=== PATIENT | male | born 1965 | race Caucasian/White ===

== ENCOUNTER 2023-03-07 06:01 | Day surgery (SDC) | payer OTHER ==
[~2023-03-07] VITALS: Ht 172.7 cm; Wt 80.0 kg
[2023-03-07 06:34] VITALS: BP 157/78
[2023-03-07] MEDS ORDERED: LIPITOR40 MG PO (06:38)
[2023-03-07] MEDS ORDERED: ZESTRIL40 MG PO (06:38)
[2023-03-07] MEDS ORDERED: REMERON15 MG PO (06:39)
[2023-03-07 06:54] LABS: BASOPHILS 1.2 % (0-2); EOSINOPHILS 2.3 % (0-6); HEMATOCRIT 41.2 % (35.0-50.0); HEMOGLOBIN 14.2 g/dL (12.0-18.0); LYMPHOCYTES 35.2 % (24-44); MCH 30.5 (27-36); MCHC 34.4 g/dl (30-36); MCV 88.5 fl (81-99); MONOCYTES 8.6 % (0-12); NEUTROPHILS 52.7 % (39-80); PLATELET COUNT 191 K/uL (140-440); RBC 4.66 M/ul (4.3-5.7); RDW 13.7 (10.5-15.0)
[2023-03-07 07:03] LABS: ALBUMIN 3.7 g/dL (3.4-5.0); ALBUMIN/GLOBULIN RATIO 1.23 (1.1-2.4); ANION GAP 14.6 (7-21); BILIRUBIN, TOTAL 0.5 ng/dL (0.2-1.0); BUN/CREATININE RATIO 13.82 (6.0-28.6); CREATININE, SERUM 0.94 mg/dL (0.70-1.30); POTASSIUM 3.6 mmol/L (3.5-5.1); PROTEIN, TOTAL 6.7 g/dL (6.4-8.2)
[2023-03-07] MEDS ORDERED: HYDROCODON-ACE1 EA10 PO (09:31)
[2023-03-07] MEDS ORDERED: IBUPROFEN600 MG PO (09:31)
[2023-03-07] MEDS ORDERED: ACETAMINOPHEN500 MG PO (09:32)
[2023-03-07 09:55] VITALS: BP 160/78
[2023-03-07 10:55] VITALS: BP 150/76
--- NOTE | 2023-03-07 15:31 | EKG ---
[facility] [address] [facility] [place], [place] [address] Signed Normal sinus rhythm Normal ECG No previous ECGs available Confirmed by GABRIEL OCONNOR MD ([id number]) on 03/07/2023 3:31:44 PM Electronically Signed By: GABRIEL OCONNOR 03/07/23 1531 PATIENT NAME: ESSIE VICTORIA Electrocardiogram DATE OF : 63 PHYSICIAN: GABRIEL OCONNOR REPORT #: [id number] REPORT IS CONFIDENTIAL AND NOT TO BE RELEASED WITHOUT AUTHORIZATION
--- NOTE | 2023-03-07 21:10 | OR ---
[facility] [address] [place], [place] [address] Signed DATE OF OPERATION: 03/07/2023 SURGEON: Elham Harkins MD PREOPERATIVE DIAGNOSIS: Incarcerated non-strangulated left inguinal hernia. POSTOPERATIVE DIAGNOSES: 1. Incarcerated non-strangulated left direct inguinal hernia. 2. Cord lipoma. PROCEDURES: 1. Repair of left direct inguinal hernia with implantation of Prolene mesh underlay technique. 2. Excision of cord lipoma. ANESTHESIA: General LMA, Eliazar Kidd, SENIOR ENERGY CONSULTANT and preoperative left inguinal block and local 0.25% Marcaine with epinephrine 10 mL. INDICATION: This 57-year-old man is a prisoner at [facility] and is identified as having an increasingly painful bulky left groin hernia. It is not reducible. Testicles appear normal. He has been admitted at this time to undergo repair of the hernia. He understands the risk of bleeding, infection, recurrence and so on. FINDINGS: A bulky hernia was noted, proved to be a direct hernia. It was not reducible. There was a cord lipoma moderate in size, which was excised. Cord structures were preserved. An ilioinguinal nerve was identified and preserved as well. Repair consisted of invagination of the direct defect with implantation of Prolene mesh in an underlay technique. The tails of the graft were not carried circumferentially around the cord, so as to minimize cord edema. DESCRIPTION OF PROCEDURE: The patient was brought to the operating room, given a general LMA type anesthetic after undergoing a left inguinal regional block by the out of school hours care worker. Preoperative antibiotic Ancef was given. Sequential compression device stockings were used. After satisfactory general anesthesia, the lower abdomen was clipped and prepared with chlorhexidine solution and draped sterilely. An incision was made cephalad to the pubic tubercle and Electronically Signed By: ELHAM HARKINS MD 03/07/232109 PATIENT NAME: ESSIE VICTORIA OPERATIVE REPORT DATE OF : 63 REPORT #: [id number] PHYSICIAN: ELHAM HARKINS MD PCP: VIRGEN ALBERTS REPORT IS CONFIDENTIAL AND NOT TO BE RELEASED WITHOUT AUTHORIZATION [facility] [address] [place], [place] [address] Signed dissection carried through the subcutaneous tissue, revealing ultimately a bulky hernia which had displaced the external oblique and attenuated the fibers quite markedly. It was not reducible. The remnants of the external oblique were incised laterally and with meticulous care the cord structures were mobilized from the floor more fully. Ultimately, a lipoma in the anterolateral aspect was freed from the cord structures and its vascular pedicle secured with hemostats, excising the lipoma and passed for pathology. The vascular pedicles were secured with 2-0 silk ties. The cord was encircled with a Juany drain and retracted. The ilioinguinal nerve branch was freed from the cremasteric muscle fibers of the cord. Centenary was placed and the nerve retracted laterally around the external oblique. Dissection of the hernia away from the cord itself was undertaken with electrocautery ultimately showing the defect to be medial to the inferior epigastric vessels. This constituted a direct hernia. The defect was rather bulky at least 3-4 cm in the inguinal canal. There was no indirect sac. An Allis was applied to the tendon of the transversus abdominis and with the cord retracted laterally. The attenuated fibers of the fascia of the transversalis were incised with electrocautery allowing for replacement of the bulky properitoneal fat and herniated segment back to the properitoneal space. A segment of Prolene mesh was cut to an elliptical configuration and secured in an underlay technique with interrupted 2-0 Prolene sutures. A defect was cut in the graft to accommodate the cord and the tails of the graft were secured laterally. Complete and circumferential closure of the graft in relation to the cord was not undertaken so as to avoid congestion to the cord structures itself. The ilioinguinal nerve was made certain to be free of any encumbrance of the mesh as well. Irrigation was undertaken and 10 mL of 0.25% Marcaine with epinephrine was injected locally. The cord was placed into the canal as was the ilioinguinal nerve. The external oblique reapproximated with running 2-0 Vicryl suture. Arnel layer was reapproximated with interrupted 2-0 Vicryl and the skin closed with running subcuticular 3-0 Vicryl. Steri-Strips were applied as was an Acticoat dressing. The patient was ultimately extubated and transferred to recovery room in good condition having suffered no complications. Sponge, needle, and instrument counts reported as correct x3. MD SRIDEVI Olguin/VADIML /[id number] Electronically Signed By: ELHAM HARKINS MD 03/07/232109 PATIENT NAME: ESSIE VICTORIA OPERATIVE REPORT DATE OF : 63 REPORT #: [id number] PHYSICIAN: ELHAM HARKINS MD PCP: VIRGEN ALBERTS REPORT IS CONFIDENTIAL AND NOT TO BE RELEASED WITHOUT AUTHORIZATION [facility] [address] [place] [address] Signed cc: GONZALES Cortes Copies: VIRGEN ALBERTS ~ Electronically Signed By: ELHAM HARKINS MD 03/07/230 PATIENT NAME: SWEETIEESSIE CAO OPERATIVE REPORT DATE OF : 63 REPORT #: [id number] PHYSICIAN: ELHAM HARKINS MD PCP: VIRGEN ALBERTS REPORT IS CONFIDENTIAL AND NOT TO BE RELEASED WITHOUT AUTHORIZATION
--- NOTE | 2023-03-09 12:27 | PATH ---
[facility] [address] [facility] [place], [place] [address] Signed SPECIMEN(S): A LEFT SPERMATIC CORD SPECIMEN SOURCE: A. LEFT SPERMATIC CORD CLINICAL HISTORY: Left inguinal hernia FINAL PATHOLOGIC DIAGNOSIS: Soft tissue, left spermatic cord, excision: - Mature adipose tissue, clinically cord lipoma BRP MICROSCOPIC EXAMINATION: Histologic sections of all submitted blocks are examined by light microscopy. These findings, together with the gross examination, support the pathologic diagnosis. GROSS DESCRIPTION: The specimen, labeled and designated "Mikhail Herreraazo, left spermatic cord lipoma," is received in formalin and consists of yellow-quigley, smooth fibroadipose tissue fragment that measure 5.5 x 1.7 x 0.8 cm. Specimen is inked. Sectioning through the specimen to reveal regular adipose tissue surrounded with a thin capsule. Accounts Receivable Administrator sections are submitted in (A1). JS (under the direct supervision of a pathologist) The Gross Description was prepared using a voice recognition system. The report was reviewed for accuracy; however, sound-alike word errors, addition and/or deletions may occur. If there is any question about this report, please contact Client Services. ADDITIONAL NOTES: Immunohistochemical and/or in situ hybridization studies if performed in this case included appropriate positive controls that reacted as expected. This test was developed and its performance characteristics determined by [facility]. It has not been cleared or approved by the U.S. Food and Drug Administration. The FDA has determined that such clearance or approval is not necessary. This test is used for clinical purposes. It should not be regarded as investigational or for research. [facility] is certified under the Clinical Laboratory Improvement PATIENT NAME: ESSIE VICTORIA PATHOLOGY DATE OF : 63 REPORT #: [id number] PHYSICIAN: ALECIA RAMIREZ PCP: VIRGEN ALBERTS REPORT IS CONFIDENTIAL AND NOT TO BE RELEASED WITHOUT AUTHORIZATION [facility] [address] [place] [facility] [place] [address] Signed Amendments of 1988 (CLIA) as qualified to perform high complexity clinical laboratory testing. PERFORMING LABORATORY: Technical component was performed by [facility], [address] [place] [address] (CLIA# [id number]). Professional interpretation was performed by [facility] - [facility], [facility] [address] [address] (CLIA#:[id number]). Diagnostician: Davie Mayfield MD Pathologist Electronically Signed 03/09/2023 Copies: ~ PATIENT NAME: ESSIE VICTORIA PATHOLOGY DATE OF : 63 REPORT #: [id number] PHYSICIAN: ALECIA RAMIREZ PCP: VIRGEN ALBERTS REPORT IS CONFIDENTIAL AND NOT TO BE RELEASED WITHOUT AUTHORIZATION
== END 2023-03-07 11:00 | disposition home or self-care (01) ==
LOC: DS 06:01
PROVIDERS: ATTEND Surgery
PROC: 0VBG0ZZ Excision of Left Spermatic Cord, Open Approach (ICD-10-PCS; 2023-03-07)
PROC: 0YU60JZ Supplement Left Inguinal Region with Synthetic Substitute, Open Approach (ICD-10-PCS; principal; 2023-03-07 07:30)
DX: K40.30 Unilateral inguinal hernia, with obstruction, without gangrene, not specified as recurrent (principal); D17.6 Benign lipomatous neoplasm of spermatic cord; N40.1 Benign prostatic hyperplasia with lower urinary tract symptoms; R35.0 Frequency of micturition; G40.909 Epilepsy, unspecified, not intractable, without status epilepticus; I10 Essential (primary) hypertension; J45.909 Unspecified asthma, uncomplicated
CPT/HCPCS: 00830; 36415; 64450; 76942; 80053; 85025; 93005; 93010; C1781; J0131; J0690; J1100; J1644; J1885; J2001; J2250; J2405; J2704; J2795; J3490; J7121

== ENCOUNTER 2023-03-14 10:10 | Day surgery (SDC) | payer OTHER ==
[~2023-03-14] VITALS: Ht 172.7 cm; Wt 79.3 kg
[~2023-03-14 10:10] MED LIST: ACETAMINOPHEN500 MG PO; HYDROCODON-ACE1 EA10 PO; IBUPROFEN600 MG PO; LIPITOR40 MG PO; REMERON15 MG PO; ZESTRIL40 MG PO
[2023-03-14] MEDS ORDERED: FLOMAX0.4 MG PO (10:31)
[2023-03-14] MEDS ORDERED: HYDROCHLOROTH12.5 M1 PO (10:33)
[2023-03-14 12:38] LABS: BASOPHILS 1.1 % (0-2); EOSINOPHILS 4.1 % (0-6); HEMATOCRIT 39.5 % (35.0-50.0); HEMOGLOBIN 13.7 g/dL (12.0-18.0); LYMPHOCYTES 21.6 % (24-44); MCHC 34.6 g/dl (30-36); MCV 89.6 fl (81-99); MONOCYTES 9.1 % (0-12); NEUTROPHILS 64.1 % (39-80); PLATELET COUNT 213 K/uL (140-440); RBC 4.41 M/ul (4.3-5.7); RDW 13.8 (10.5-15.0)
[2023-03-14 13:05] LABS: ALBUMIN 3.7 g/dL (3.4-5.0); ANION GAP 11.3 (7-21); BILIRUBIN, TOTAL 0.8 ng/dL (0.2-1.0); BUN/CREATININE RATIO 21.11 (6.0-28.6); CALCIUM 9.2 mg/dL (8.5-10.1); CREATININE, SERUM 0.9 mg/dL (0.70-1.30); POTASSIUM 4.3 mmol/L (3.5-5.1); PROTEIN, TOTAL 7.4 g/dL (6.4-8.2)
[2023-03-14] MEDS ORDERED: HYDROCODON-ACE1 EA10 PO (18:44)
[2023-03-14] MEDS ORDERED: ACETAMINOPHEN500 MG PO (18:45)
--- NOTE | 2023-03-14 18:53 | NUR ---
03/14/23 [address] 1833- PT ARRIVES TO PACU, NON REACTIVE TO STIMULUS AT THIS TIME. ON ROOM AIR AND TOLERATING WELL. LR INFUSING TO LEFT HAND IV (CHARTED RIGHT). ALL MONITORS IN PLACE. ABD SOFT, NON DISTENDED. DRESSING TO LEFT GROIN, CDI, BRUISING FROM PREVIOUS PROCEDURE.
[2023-03-14 19:00] VITALS: BP 157/66
--- NOTE | 2023-03-14 19:08 | NUR ---
PT TO ROOM 123 FROM PACU. PT AWAKE AND ALERT, RESPIRATIONS EVEN AND UNLABORED. GUARDS AT BEDSIDE. DRSG TO L) GROIN IS CDI, BRUISING AROUND SITE IS REPORTED TO BE FROM PREVIOUS SURGERY. PT DENIES PAIN AT THIS TIME.
[2023-03-14 19:09] VITALS: BP 147/75
--- NOTE | 2023-03-15 04:32 | NUR ---
REC'D REPORT FROM ESTELLA GARCIA. PT LYING ON STRETCHER. A/O X4. C/O PAIN- PRN NORCO GIVEN. PT TOLERATING PO FLUIDS AND FOOD. DENIES NAUSEA. VSS. ABLE TO URINATE WITH NO ISSUES. ASSISTED WITH DRESSING BY OFFICERS WHO ARE PRESENT IN ROOM. PT LEFT VIA W/C TO FRONT DOOR. LEFT WITH OFFICERS AT 2044.
--- NOTE | 2023-03-15 08:43 | HP ---
[facility] [address] [place], [place] [address] Signed ADMISSION DATE: 03/14/2023 PROBLEM: Draining left groin wound hematoma. HISTORY OF PRESENT ILLNESS: This 57-year-old man is a prisoner at [facility]. One week ago on March 07, 2023, he underwent repair of an incarcerated non-strangulated left inguinal hernia with excision of cord lipoma. He was doing quite well until this morning at which point he had the onset of significant swelling and ultimately drainage of some serosanguineous fluid. Ecchymosis was noted and he was transported to the emergency room where he was further evaluated. The patient describes no significant pain up until today really. He has had no fever, chills, or other similar problem. LABORATORY DATA: Lab studies were obtained, which showed a white count of only 6.1, hematocrit 39.5, platelets 213,000. A chem profile which was essentially normal. A CT scan was obtained by Dr. Eddie Zaragoza, emergency room physician and I have reviewed that study and the interpretation. Edematous changes of the left inguinal area as well as the cord was noted, but no sign of well-formed fluid collection. PAST MEDICAL HISTORY: Negative other than prior history of a left jaw tumor removal as well as history of cholecystectomy and more recently left inguinal hernia repair. He does have hypertension. . MEDICATIONS: Includes atorvastatin, lisinopril, Remeron, tamsulosin, and hydrochlorothiazide. REVIEW OF SYSTEMS: He denies any fever or chills. His discomfort in the left groin is not excessive currently. He does admit that he has had drainage from the wound today of a serosanguineous nature. PHYSICAL EXAMINATION: GENERAL: Pleasant man who is alert and oriented. VITAL SIGNS: He weighs 79.3 kg. NECK: Trachea is midline. CHEST: Clear. HEART: Regular without murmur. ABDOMEN: Nondistended. In the left groin, there is some amount of ecchymosis and soft Electronically Signed By: ELHAM HARKINS MD 03/15/23 0843 PATIENT NAME: ESSIE VICTORIA HISTORY AND PHYSICAL DATE OF : 63 REPORT #: [id number] PHYSICIAN: ELHAM HARKINS MD PCP: VIRGEN ALBERTS REPORT IS CONFIDENTIAL AND NOT TO BE RELEASED WITHOUT AUTHORIZATION [facility] [address] [place], [place] [address] Signed tissue swelling. The left cord area is edematous, but not tense and distended. There is ecchymosis of the scrotum and penis itself. EXTREMITIES: Show no clubbing, cyanosis, or edema. There is some ecchymosis dependently in the proximal groin and medial thigh. ASSESSMENT: I reviewed the CT scan and his clinical exam is highly consistent with a hematoma. The hematoma likely caused a fair amount of inflammation and secondary edema of the wound itself. He does not appear to have ongoing bleeding. However, there likely remain some amount of hematoma for which irrigation and drainage would expedite his ultimate recovery. He has not eaten since early this morning and had only liquids actually. I would recommend exploration of the groin wound this evening. Irrigation and placement of drain is appropriate to assure hemostasis. Most likely, he would be able to return to the alf later in the day. The risk of bleeding, infection, need for other indicated procedures was reviewed with him. He understands and wishes to proceed. MD SRIDEVI Olguin/LINN /[id number] cc: MD Virgen Watson FNP Copies: VIRGEN ALBERTS ~ Electronically Signed By: ELHAM HARKINS MD 03/15/23 0843 PATIENT NAME: ESSIE VICTORIA HISTORY AND PHYSICAL DATE OF : 63 REPORT #: [id number] PHYSICIAN: ELHAM HARKINS MD PCP: VIRGEN ALBERTS REPORT IS CONFIDENTIAL AND NOT TO BE RELEASED WITHOUT AUTHORIZATION
--- NOTE | 2023-03-15 08:43 | OR ---
[facility] [address] [place], [place] [address] Signed DATE OF OPERATION: 03/14/2023 SURGEON: Elham Harkins MD PREOPERATIVE DIAGNOSES: 1. Left groin wound hematoma with necessitation. 2. History of recent (seven days) left inguinal hernia repair. POSTOPERATIVE DIAGNOSES: 1. Left groin wound hematoma with necessitation. 2. History of recent (seven days) left inguinal hernia repair. PROCEDURE: Exploration, culture and irrigation and evacuation of clot, left groin wound. ANESTHESIA: General LMA, Terrance Garrett, HEAD GOLF COACH and local 3 mL of 0.25% Marcaine with epinephrine. INDICATION: This 57-year-old man is a prisoner at [facility] and the patient of Virgen Alberts,. He underwent left inguinal hernia repair by me as well excision of the cord lipoma seven days ago. He was doing completely fine. He says until this morning when he had the onset of pain in the left groin area with sudden swelling and development of ecchymosis. He presented to the emergency room where he was evaluated by Dr. Zaragoza, emergency room physician, who recognized high probability of wound hematoma. The patient is not on anticoagulants or nor does he have an underlying bleeding disorder. A CT scan was performed as was CBC and Chem profile and so forth showing a normal white count and hematocrit and platelets and the CT scan showed inflammatory changes, but no sign of recurrent hernia. No sign of drainable fluid collection. Based on his clinical appearance, which includes ecchymosis of the wound and some dependent ecchymosis as well. I have recommended wound evacuation as persistent oozing of the resolving clot will be problematic in his current home environment [facility]. The risk of bleeding, infection, need for other indicated procedures was all reviewed with the patient. He understands and wished to proceed. FINDINGS: There is no sign of active bleeding. Within the subcutaneous space down to the external oblique, there was some residual clot. Mostly there was inflammatory change related to the extravascular blood and secondary inflammatory effects. The Arnel's layer was Electronically Signed By: ELHAM HARKINS MD 03/15/23 0843 PATIENT NAME: ESSIE VICTORIA OPERATIVE REPORT DATE OF : 63 REPORT #: [id number] PHYSICIAN: ELHAM HARKINS MD PCP: VIRGEN ALBERTS REPORT IS CONFIDENTIAL AND NOT TO BE RELEASED WITHOUT AUTHORIZATION [facility] [address] [place], [place] [address] Signed divided and opened showing no sign of blood in the left hemiscrotum. No sign of active bleeding. No oozing and certainly no arterial blood. Irrigation was undertaken as was application of Savannah hemostatic agent. A drain was not required. DESCRIPTION OF PROCEDURE: The patient was brought to the operating room, given a general LMA type anesthetic. Preoperative antibiotic Ancef was given. Sequential compression device stockings were used. Steri-Strips remained over the wound were removed. Significant ecchymosis was noted and swelling. There was an opening in the midportion of the wound, which had a lot of necessitation of dark bloody fluid previously. The area was carefully prepared with a Betadine based solution and draped sterilely. An incision was made along the line of previous incision. Incision extended through the dermis. Immediately noted was a gelatinous dark clot, which was able to be manipulated out of the wound. Approximately 10-15 mL at most was removed from this area. The surrounding subcutaneous fatty tissue was secondarily inflamed without sign of ongoing bleeding. Further removal of the clot revealed the closure of the Arnel's layer. This was opened with sharp dissection showing the underlying external oblique to be essentially free of clot or bleeding. Extension of the Yankauer suction into the left hemiscrotum showed no sign of clot in this area or active bleeding. Copious irrigation was undertaken with sterile water, showing no sign of ongoing bleeding elsewhere. Using the [place] hemostatic agent, the areas of the wound were covered with the hemostatic powder. Arnel's layer was reapproximated with interrupted 2-0 Vicryl and skin closed with running subcuticular 3-0 Vicryl. Steri-Strips were applied as was Acticoat dressing. He was ultimately extubated and transferred to recovery room in good condition having suffered no complications. Sponge, needle, and counts reported as correct x3. MD SRIDEVI Olguin/LINN /[id number] cc: GONZALES Dunlap EOCI Electronically Signed By: ELHAM HARKINS MD 03/15/23 0843 PATIENT NAME: ESSIE VICTORIA OPERATIVE REPORT DATE OF : 63 REPORT #: [id number] PHYSICIAN: ELHAM HARKINS MD PCP: VIRGEN ALBERTS REPORT IS CONFIDENTIAL AND NOT TO BE RELEASED WITHOUT AUTHORIZATION [facility] [address] [facility] [place], [place] [address] ZARAGOZA [facility] Copies: ~ Electronically Signed By: ELHAM HARKINS MD 03/15/23 0843 PATIENT NAME: ESSIE VICTORIA OPERATIVE REPORT DATE OF : 63 REPORT #: [id number] PHYSICIAN: ELHAM HARKINS MD PCP: VIRGEN ALBERTS REPORT IS CONFIDENTIAL AND NOT TO BE RELEASED WITHOUT AUTHORIZATION
== END 2023-03-14 21:00 | disposition home or self-care (01) ==
LOC: ED 10:10 → DS 15:33 → DSVR 15:34 → MS 17:00 → DS 21:00
PROVIDERS: Internal Medicine; ATTEND Surgery
PROC: 0JCL0ZZ Extirpation of Matter from Right Upper Leg Subcutaneous Tissue and Fascia, Open Approach (ICD-10-PCS; principal; 2023-03-14 17:30)
DX: L76.32 Postprocedural hematoma of skin and subcutaneous tissue following other procedure (principal); Y83.8 Other surgical procedures as the cause of abnormal reaction of the patient, or of later complication, without mention of misadventure at the time of the procedure
CPT/HCPCS: 00400; 36415; 74177; 80053; 85025; 87070; 87075; 87205; 96375; 99284-25; J0131; J0690; J1100; J1200; J2001; J2405; J2704; J3010; J3490; J7121; Q9967